=== PATIENT | female | born 1950 | race Caucasian/White ===

== ENCOUNTER 2018-03-12 15:24 | Inpatient (IN) | payer OTHER, MEDICARE ==
[2018-03-12] MEDS ORDERED: NS 500 ML IV ONE (15:51)
--- NOTE | 2018-03-12 15:58 | EDPHY ---
H & P Time Seen by Provider: 03/12/18 15:31 HPI/ROS: HPI Lower extremity weakness. 67-year-old female by ambulance with her . They are both visiting from [facility]. The patient has a history of hypertension as well as myelopathy involving her central spinal cord. She reports that last night she woke with lower extremity weakness and was not able to get out of bed. She describes this as symmetrical involving both lower extremities. She describes having difficulty pushing herself up up to the standing position from sitting and supporting her weight. She had to be helped to the bathroom twice last night secondary to this by her who is with her now. She has had some weakness and pain associated with her lower extremities in the past thought due to peripheral neuropathy but after an extensive evaluation at the [facility] she was diagnosed with a myelopathy. She reports that her weakness today is unlike anything she has experienced in the past. She recently had her blood pressure medication changed to hydrochlorothiazide this last Wednesday. She denies any loss of sensation in her extremities. No focal weakness. No other associated signs or symptoms. No history of [place] or other [place] ROS: Constitutional: No fever, no chills. As above. Eyes: No discharge. No changes in vision. ENT: No sore throat. No nasal congestion or rhinorrhea. Respiratory: No cough. No shortness of breath. Cardiac: No chest pain, no palpitations. Gastrointestinal: No abdominal pain, no vomiting, no diarrhea. Genitourinary: No hematuria. No dysuria or increased frequency with urination. Musculoskeletal: No back pain. No neck pain. No myalgias or arthralgias. Skin: No rashes. Neurological: No headache. No focal weakness or altered sensation. As above. Past medical history: Myelopathy. Hypertension. Primary care is back in [facility]. Social history: Nonsmoker. Drinks alcohol occasionally. Here with her . As above. Physical Exam: General Appearance: Alert, no distress. This patient is responding to questions appropriately and in full sentences. This patient appears well- hydrated and well-nourished. Eyes: Pupils equal and round at 3-2 mm bilaterally, no pallor or injection. No lid edema, erythema or injection. ENT, Mouth: Mucous membranes are moist. The pharyngeal tissues are unremarkable. No edema or swelling. No asymmetry suggestive of abscess. No erythema or exudates. Respiratory: There are no retractions, lungs are clear to auscultation with good air movement bilaterally. Cardiovascular: Regular rate and rhythm. No murmur. Gastrointestinal: Abdomen is soft and nontender, no masses, bowel sounds normal. No focal tenderness at McBurney's point. No Rascon sign. Neurological: Motor sensory function is grossly intact except for 3 to 4/5 motor weakness in the lower extremities only. She has symmetrical intact deep tendon reflexes in the bilateral lower extremities. Cranial nerves are normal. Cerebellar function is intact. Skin: Warm and dry, no rashes. Musculoskeletal: Neck is supple and nontender. Extremities are symmetrical. All joints range without pain or impingement. Psychiatric: No agitation. No depression. Database: EKG: EKG time is 4:06 p.m.; EKG shows a narrow complex normal sinus rhythm with a ventricular rate of 84. Left anterior fascicular block noted. The KS, QRS, QT intervals are within normal limits. There are no ST-T wave changes indicative of ischemic or injury pattern. No evidence of right heart strain. Interpreted by me. Imaging: CT head without contrast: Negative. Results were discussed with staff radiologist Dr. Ike Mckenize. Procedures: Emergency department course: Vital signs reviewed. Differential diagnosis includes Guillain-Kincaid syndrome, hypokalemic periodic paralysis, myelopathy. Initial imaging will include noncontrast CT scan of the brain. IV placed. Patient placed on a monitor. EKG obtained and reviewed by myself. She will be given 500 cc of IV normal saline over about an hour. I discussed lumbar puncture and the reasoning for this with her and her . She declines this test at this time but we will revisit this subject. 5:00 p.m., patient re-evaluated. Resting comfortably at this time. No change in her neurologic exam. Results of her emergency department workup discussed with her and her . The need for admission and further evaluation discussed. They agree. 5:10 p.m., spoke with on-call hospitalist Dr. Schwartz. Case discussed in detail. Dr. Schwartz accepts this patient for admission. He will evaluate the patient in the emergency department and consult with me further regarding the need for immediate lumbar puncture and or MR imaging. 5:30 PM, Dr. Schwartz at the bedside. Will defer lumbar puncture and MR imaging to the hospitalist service. Patient admitted to the hospitalist service under the care of Dr. Schwartz in stable condition. Differential Diagnosis: The differential diagnosis on this patient includes but is not limited to hypokalemic periodic paralysis, Guillain-Kincaid syndrome, myelopathy, hyponatremia with exacerbation of myelopathy. Tick borne illness, [place]'s crisis, CVA, myasthenia gravis unlikely. This represents a partial list of diagnoses considered. These considerations are based on history, physical exam , past history, reassessment and diagnostic testing. Constitutional: Initial Vital Signs Temperature (C) 37.3 C 03/12/18 16:05 Heart Rate 86 03/12/18 16:05 Respiratory Rate 16 03/12/18 16:05 Blood Pressure 131/63 H 03/12/18 16:05 O2 Sat (%) 92 03/12/18 16:05 O2 Delivery Mode Room Air Allergies/Adverse Reactions: No Known Allergies Allergy (Unverified 03/12/18 16:00) Home Medications: Medication Instructions Recorded Aspirin EC [Aspirin EC 81 mg (*)] 81 mg PO Q2D 03/12/18 Carvedilol [Coreg (*)] 25 mg PO BIDMEAL 03/12/18 Gabapentin [Neurontin 300 MG (*)] 600 mg PO BID 03/12/18 Hydrochlorothiazide [HCTZ (*)] 25 mg PO DAILY 03/12/18 Nortriptyline HCl [Pamelor 25 mg 25 mg PO BID 03/12/18 (*)] Potassium Cl [Klor-Con] 10 meq PO DAILY 03/12/18 hydrALAZINE [Apresoline 25 mg (RX)] 25 mg PO TID 03/12/18 Medical Decision Making - Data Points Laboratory Results: Laboratory Results 03/12/18 15:25 03/12/18 15:25 Medications Given: Acetaminophen (Tylenol) 650 mg PO Q4HRS PRN PRN Reason: Pain, Mild/Fever, Can Take PO Stop: 09/08/18 17:48 Last Admin: 03/13/18 06:45 Dose: 650 mg Carvedilol (Coreg) 25 mg PO BIDMEAL [facility] Stop: 09/09/18 07:59 Last Admin: 03/13/18 09:29 Dose: 25 mg Enoxaparin Sodium (Lovenox) 40 mg SC DAILY [facility] Stop: 09/09/18 08:59 Last Admin: 03/13/18 09:30 Dose: 40 mg Gabapentin (Neurontin) 600 mg PO BID JAYNE Stop: 09/08/18 20:59 Last Admin: 03/13/18 09:29 Dose: 600 mg Hydralazine HCl (Apresoline) 25 mg PO TID JAYNE Stop: 09/08/18 21:59 Last Admin: 03/13/18 09:30 Dose: 25 mg Nortriptyline HCl (Pamelor) 25 mg PO BID JAYNE Stop: 09/08/18 20:59 Last Admin: 03/12/18 21:05 Dose: 25 mg Potassium Chloride (Klor-Con) 10 meq PO DAILY JAYNE Stop: 09/09/18 08:59 Last Admin: 03/13/18 09:29 Dose: 10 meq Discontinued Medications Cosyntropin (Cortrosyn Syringe) 0.25 mg IVP DAILY@0600 ONE Stop: 03/13/18 06:01 Last Admin: 03/13/18 06:45 Dose: 0.25 mg Sodium Chloride (Ns) 500 mls @ 0 mls/hr IV ONCE ONE; Wide Open PRN Reason: Protocol Stop: 03/12/18 15:52 Last Admin: 03/12/18 16:15 Dose: 500 mls Departure - Departure Disposition: [facility] Acute Clinical Impression: Lower extremity weakness, Hyponatremia, Hypokalemia
[2018-03-12 16:01] LABS: PLATELET COUNT 246 10^3/uL (150-400)
--- NOTE | 2018-03-12 16:08 | CPEKG ---
Heart Rate: 84 RR Interval: 714 P-R Interval: 156 QRSD Interval: 96 QT Interval: 372 QTC Interval: 440 P Boissevain: 20 QRS Boissevain: -44 T Wave Boissevain: 42 EKG Severity - ABNORMAL ECG - EKG Impression: SINUS RHYTHM EKG Impression: LEFT ANTERIOR FASCICULAR BLOCK EKG Impression: CONSIDER ANTEROSEPTAL INFARCT Electronically Signed By: Janeen Tee 12-Mar-2018 22:12:47
[2018-03-12 16:22] LABS: CREATINE KINASE 42 IU/L (0-156)
[2018-03-12] MEDS ORDERED: ONDANSETRON 4 MG/2 ML VIAL IVP PRN (17:49)
[2018-03-12] MEDS ORDERED: ONDANSETRON DISINTEGRATING 4 MG TAB PO PRN (17:49)
[2018-03-12] MEDS ORDERED: ZOLPIDEM TARTRATE 5 MG TAB PO PRN (17:49)
[2018-03-12] MEDS ORDERED: NS 1,000 ML IV SCH (18:00)
--- NOTE | 2018-03-12 20:26 | PDGENHP ---
History and Physical History and Physical: CC: Acute worsening of chronic bilateral leg weakness, unable stand HISTORY: This patient is here visiting her family from [facility]. She arrived here it sounds like yesterday. She has chronic bilateral leg weakness of neurologic etiology, which is described below. Last night in the middle of night she felt the need to trying get up to urinate. Her usually helps her in that setting because of her leg weakness, but he found that he needed to speak support her quite a bit more than usual and she had urinary incontinence as it was slow to get to the commode. She noticed that she was feeling much weaker in the legs than usual as well. She subsequently got back in bed but then later during the fitter mechanic hours she again had to get up but was unable to stand with his assistance and ended up on the floor and unable to get up. He eventually called for paramedics to help get her up and back into bed. However subsequently she was unable to get up from the bed due to bilateral leg weakness and so is transferred by ambulance here to the ER. Both legs are equally affected acutely and chronically. She has some chronic neuropathic pain but no increase in that pain at this time. Notably the patient, who has chronic hypertension, has had a lot of issues lately with poorly controlled blood pressure, fluctuations in blood pressure, and worsening edema. Four weeks ago her primary care physician gave her chlorthalidone, however this was causing her blood pressures to be too low and she was having some orthostatic symptoms. Therefore 2 weeks ago the chlorthalidone was stopped. In the following week the patient had significant edema accumulate in her ankles, and so her who is a surgeon prescribed hydrochlorothiazide which she has started taking 25 mg daily. This has removed the edema though it is unclear whether there has been much change yet and her blood pressure in the past week. Notably as well, it sounds like she may have taken an extra dose of the hydrochlorothiazide last night, possibly due to misunderstanding of the intended instruction. In the past she has used quite a large number of blood pressure medicines from different classes often with little benefit and the blood pressure control. Her neurologic illness is a noncompressive spinal myelopathy of unknown etiology. Her symptoms started approximately 20 years ago with painful paresthesias and neuropathic pain in her low feet with the symptoms gradually over years advancing more proximally and now they are present from her toes up to the proximal thighs. In addition she has had gradual onset of weakness in her legs without weakness and other body parts. Initially she was diagnosed with peripheral neuropathy, having been evaluated by numerous neurologists in [place]. However as she never had consistent findings or unknown cause, she eventually was assessed by neurologist at [facility] who diagnosed her as having no peripheral neuropathy but as having a myelopathy. Apparently MRI of the spine has shown some central cord disease. Quite extensive testing was done to look for a cause of her myelopathy however apparently no etiologic answer was found. In terms of current symptoms she can walk with assistance or a cane for short distances, has used a cane for 5 years. However for anything more than perhaps half a block she uses a wheelchair due to excessive weakness and fatigue, fall risk. She admits to some urge incontinence if she has trouble getting to a commode in time, however until last night generally speaking does not have any incontinence as long she get to a commode. She has some constipation but no problems with bowel control. She has no neurologic syndrome involving the upper extremities neck head or cranial nerves or mental functioning. There was some testing looking at autonomic dysfunction and apparently there was a suggestion of autonomic dysfunction based on the results , though there was question of whether her blood pressure medicines may have impacted the result. 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, manifest as bilateral leg weakness with neuropathic pain and paresthesias of the legs Chronic hypertension, chronically poorly controlled Fairly recent onset of bilateral leg edema, which is diuretic responsive to both chlorthalidone and hydrochlorothiazide section FAMILY MEDICAL HISTORY: Extensive cardiac and vascular disease history Father had experience a sudden in his 40s SOCIAL HISTORY: and lives with her who is a cardiac surgeon He is at the bedside with her and very supportive There here from [facility] to visit with their son and his family, including 4 grandchildren ages 1-7 MEDICATIONS: Current blood pressure medicines include hydrochlorothiazide started 1 week ago , hydralazine 25 mg three times daily carvedilol 25 mg twice daily. For her nerve pain she is on gabapentin 600 twice daily and nortriptyline 25 twice daily PHYSICAL EXAMINATION: Vital Signs: Mild systolic hypertension, otherwise stable without fever Examination: General: alert, oriented, good mentation, relaxed Skin: Turgor is mildly decreased, otherwise warm, dry, good color, no rash HEENT: normal Neck: no mass or jvd Resps: relaxed Lungs: clear breath sounds Heart: regular, no murmur Abdomen: soft, nondistended, nontender, +BS, no mass Upper Extremities: normal Lower Extremities: no edema, warm No Bleeding or bruising Neurologic: normal speech/language, normal hvac technician, quite weak in both legs and feet symmetrically, able to move her feet but not take either foot up off the bed, but with intact and symmetric reflexes no pathologic reflexes in the lower limbs IV site: looks normal LABORATORY DATA: Sodium is at 120 potassium also bit low at 3.2, with normal renal function A TSH was ordered in the ER and is normal CBC unremarkable RADIOLOGY STUDIES: CT scan of the head noncontrast was done in the ER, I reviewed the images, as well as the radiologist's report: I do not see any particular acute or other abnormalities on the CT study 12 LEAD EKG: Done in the ER, my personal interpretation of the tracing shows a sinus rhythm with left anterior fascicular block, nothing acute appearing ASSESSMENT: # ACUTE WORSENING OF CHRONIC BILATERAL LEG WEAKNESS, UNABLE TO STAND OR WALK * Appears to be caused by fluid shifts and hyponatremia in addition to her chronic myelopathy * Significant fall risk is present, and she is not safe to be in an unsupervised setting # ACUTE HYPONATREMIA IN THE SETTING OF LIKELY MILD HYPOVOLEMIA * Suspect that the hydrochlorothiazide has caused this, other possibilities exist but little evidence for other diagnoses at the moment # ONGOING POORLY CONTROLLED HYPERTENSION * Chlorthalidone recent trial seemed to be very effective but perhaps lower her blood pressure too much to the point of symptomatic orthostasis * Would consider whether Lasix might be useful which would have a milder blood pressure affect and no tendency to hypo natremia # FAIRLY RECENT ONSET OF DIURETIC RESPONSIVE BILATERAL LEG EDEMA * There are no cardiac or pulmonary symptoms at this time nor has she had any in the past, but it would be reasonable to check to be sure cardiac function is as good as it would seem # CHRONIC NONCOMPRESSIVE SPINAL CORD MYELOPATHY WITH CHRONIC BILATERAL LEG WEAKNESS AND NEUROPATHIC PAIN OF THE LEGS * This has been a slowly progressive illness over the past 20 years leading to some disability requiring a cane to walk short distances and a wheelchair for longer distances, but now with acute worsening of symptoms likely metabolic in nature * Because of the underlying spinal disease is unknown despite extensive evaluation PLANS: * Inpatient admission to hospital * Will begin treatment of her hyponatremia with oral fluid restriction and some very gentle saline hydration * Monitoring of sodium every 4 hr for the time being, goal to increase her sodium less than 10 points in 24 hr * Regular diet at this time * Discontinue hydrochlorothiazide and recommended this medicine not be used in the future * For blood pressure control, once her sodium is back in range could consider trial of Lasix but she may need other therapies, apparently has tried a very large number of medicines without consistent success * Physical occupational therapy consult * DVT prophylaxis is ordered * Case management I have reviewed the patient's case in detail with Dr. Janeen Tee I have reviewed the patient's past medical records as part of this assessment, including laboratory data, MRI reports, an autonomic nerve testing provided by her who has all of her past records in his cell phone here
[2018-03-12] MEDS: GABAPENTIN 300 MG CAP PO SCH (21:05)
[2018-03-12] MEDS: NORTRIPTYLINE HCL 25 MG CAP PO SCH (21:05)
[2018-03-12] MEDS: hydrALAZINE 25 MG TAB PO SCH (22:43)
--- NOTE | 2018-03-12 23:07 | PDMN ---
Medical Necessity Medical necessity: C/M review: est. > 2 MN LOS for eval and TX of acute worsening of chronic bilateral bilateral leg weakness, inability to stand or walk- appears to be caused by fluid shifts and hyponatremia in addition to patient's chronic myelopathy, significant fall risk is present, patient not medically safe to be in an unsupervised setting, acute hyponatremia in the setting of likely mile hypovolemia, requiring gentle saline IV fluids, planned Neurology consult, Case Management consult, ongoing oral fluid restriction monitor sodium level Q 4 hrs- goal; to increase sodium less than 10 points in 24 hrs., discontinue hydrochlorthiazide, pulse oximetry, acute inpt PT/OT in SDU , comorbid ongoing poorly controlled hypertension, fairly recent onset of diuretic responsive bilateral leg edema, chronic noncompressive spinal cord myelopathy with chronic bilateral leg weakness and neuropathic pain of the legs - slowly progressive over the past 20 years leading to some disability requiring a cane to walk short distances and a wheelchair for longer distances but now with acute worsening of symptoms likely metabolic in nature, patient visiting family in [place] from [facility] per H/P.
[2018-03-13] MEDS ORDERED: COSYNTROPIN 0.25 MG/2 ML SYRINGE IVP ONE (06:00)
[2018-03-13] MEDS: ACETAMINOPHEN 325 MG TAB PO PRN ×2 (06:45→15:45)
[2018-03-13] MEDS ORDERED: CARVEDILOL 25 MG TAB PO SCH (08:00)
[2018-03-13] MEDS: GABAPENTIN 300 MG CAP PO SCH ×2 (09:29→21:33)
[2018-03-13] MEDS: POTASSIUM CL 10 MEQ TAB PO SCH (09:29)
[2018-03-13] MEDS: ENOXAPARIN 40 MG/0.4 ML SYR SC SCH (09:30)
[2018-03-13] MEDS: hydrALAZINE 25 MG TAB PO SCH (09:30)
[2018-03-13] MEDS: NORTRIPTYLINE HCL 25 MG CAP PO SCH ×2 (11:47→21:33)
--- NOTE | 2018-03-13 12:15 | NEUROPROG ---
Assessment: [id number] - Neurology Consult: - CC: Lower extremity weakness - HPI: Pt visiting from [place] with a history of non-compressive, idiopathic lumbar myelopathy (baseline chronic leg weakness/paresthesias/urge incontinence from this, diagnosed at [facility]) and HTN reported on 03/11/18 she awoke with worsening of her chronic bilateral leg weakness. She also has edema in her legs and has been recently changing her blood pressure medications. On 03/12/18 she presented to the [facility] ER and was admitted. Head CT unremarkable. Labs show low sodium of 120 felt to be secondary to HCTZ use. I initially saw the patient on 03/13/18. Na had improved to 130 with changes to blood pressure medication and fluid restriction. The patient felt her leg weakness had nearly improved to her baseline with the correction to her sodium. She declined lumbar MRI or any additional therapy or diagnostic w/u at this time. - PMHx: lumbar myelopathy since 1997 of unclear cause (diagnosed at [facility]), HTN, B/L leg edema, C.section - Home Meds: HCTZ, hydralazine, coreg, gabapentin, nortriptyline - SHx: no tobacco use FHx: cardiac disease - ROS: Pt denied acute fever, total vision loss, active severe chest pain, respiratory failure, total body severe rash, total bowel/bladder incontinence, psychosis, active seizures, or active bleeding - O: VS reviewed General: Alert Eyes: Fundoscopic exam not able to visualize optic disks CV: Heart RRR, no murmur, no carotid bruit Lungs: Clear to auscultation bilaterally, no rhonchi or rales Neuro: - Mental: . Oriented x person/place/date . concentration appears normal . speech fluency/comprehension normal . memory appears normal . fund of knowledge appear intact - Cranial Nerves: . II: PERRL, VFFTC . III/IV/: EOMI, no nystagmus, normal smooth pursuits, no Ptosis . V: facial sensation intact to LT . VII: face symmetric to eye closure and smile . VIII: hearing intact to conversation . IX/X: uvula raises symmetrically . XI: SCM 5/5 B/L strength . XII: tongue protrudes midline w/nl strength - Motor: . Tone: normal tone in all 4 extremity . Strength: no pronator drift, strength 5/5 throughout in arms, legs are 4+/ 5 and nearly back to her baseline per patient - Reflexes: B/L bic/BR/patella/ach 2/4 - Sensory: all 4 extremity intact to light touch - Coord: [id number] wnl, RASHEED wnl - Gait: deferred - Labs: 03/12/18- CBC Hct 35.7L, UTox negative, Na 120L 03/13/18- Chem Na 130L K 3.1L Cl 92L BUN 5L Cr 0.5L Ca 8.3L, TSH wnl - Rads: 03/12/18- Head CT: normal (I personally visualized the images on 03/13/18) - Assessment: 1. Chronic, idiopathic non-compressive lumbar myelopathy since 1997 causing chronic b/l leg weakness, paresthesias, and urge incontinence: Diagnosed at [facility] and no cause found despite large evaluation. I suspect her chronic myelopathy was worsened by acute hyponatremia from HCTZ use. Agree with plan to address hyponatremia and weakness is improving. - 2. HTN and secondary hyponatremia from HCTZ use: being addressed by hospitalist service - Plan: - Agree with hospitalist plan to address hyponatremia, likely the cause of her acute worsening of chronic leg weakness from myelopathy - Pt declined L-spine MRI or any other additional diagnostic work up at this time - Weakness seems to be nearly resolved with correcting hyponatremia, Neurology will sign off but will be happy to get re-involved if needed Objective: Vital Signs Temp Pulse Resp BP Pulse Ox 37.4 C 77 21 H 104/70 95 03/13/18 00:09 03/13/18 12:10 03/13/18 07:30 03/13/18 12:10 03/13/18 07:30 Laboratory Results 03/13/18 11:30 03/12/18 03/13/18 03/14/18 05:59 05:59 05:59 Intake Total 640 300 Output Total 650 Balance -10 300 Allergies/Adverse Reactions: No Known Allergies Allergy (Unverified 03/12/18 16:00)
--- NOTE | 2018-03-13 13:10 | ASMTCMCOM ---
CM Note CM Note Notes: Patient status reviewed in rounds. She is a 67 year old female here from [place] visiting family. Has a history of noncompressive spinal myelopathy. She is responding to treatment as she was hyponatremic. Therapy evaluations pending. Likely no needs at discharge. Family to return to [place] on Wednesday if patient has been medically cleared. CM to follow. Plan: Home no needs identified but with family support. Date Signed: 03/13/2018 12:37 PM Electronically Signed By:Angela Conde RN
--- NOTE | 2018-03-13 15:14 | HOSPPROG ---
Hospitalist Progress Note Assessment/Plan: 67 yo F visiting from [place] with issues of chronic weakness related to chronic idiopathic non compressive spinal myelopathy admitted with increased weakness and hyponatremia # hyponatremia: suspect this was related to HCTZ use, she was given 500ml NS on arrival and then started on a fluid restriction and has increased appropriately since then--most recently 128 from 120 on arrival. TSH wnl, stimulated appropriately on reggie stim. Will liberalize fluid restriction and monitor overnight checking q4 hour Na. If continues to decrease would give another small saline bolus. # acute on chronic weakness: largely resolved with improvement in Na as above # chronic non compressive spinal myelopathy: followed for this at [facility], appreciate neurology consultation, no further IP w/u planned # hypotension: at baseline with hypertension apparently but patient notes that she has had issues with dizzyness/lightheadedness when taking her morning BP meds which include hctz/hydralazine and carvedilol. Here got hypotensive and symptomatic with SBP in 80s after coreg/hydralazine. Will monitor bp while in house but suspect she is overmedicated and this is contributing to her dizzyness /weakness/lightheadedness # IP status # Patient new to my care. Care plan reviewed with Dr. Lin and multidisciplinary team on rounds. Subjective: no significnat overnight events, feeling better but after bp meds this am became dizzy/lightheaded and bp in the 80s systolic Objective: Vital Signs Temp Pulse Resp BP Pulse Ox 37.4 C 77 21 H 104/70 94 03/13/18 00:09 03/13/18 12:10 03/13/18 07:30 03/13/18 12:10 03/13/18 10:41 Laboratory Results 03/13/18 11:30 03/12/18 03/13/18 03/14/18 05:59 05:59 05:59 Intake Total 640 300 Output Total 650 Balance -10 300 awake alert anicteric op clear rrr no mrg cta b soft nt nd no cce warm dry well perfused oriented appropriate ICD10 Worksheet Patient Problems: Problems Problem Status Onset Lower extremity weakness Acute Hyponatremia Acute Hypokalemia Acute
[2018-03-13] MEDS ORDERED: [UNRECOGNIZED DRUG - OTHER] IV ONE (18:15)
[2018-03-13] MEDS ORDERED: NS IV ONE (18:15)
[2018-03-14] MEDS: ACETAMINOPHEN 325 MG TAB PO PRN (07:01)
[2018-03-14] MEDS: CARVEDILOL 25 MG TAB PO SCH ×2 (08:50→09:07)
[2018-03-14] MEDS: POTASSIUM CL 10 MEQ TAB PO SCH ×2 (08:51→09:28)
[2018-03-14] MEDS: GABAPENTIN 300 MG CAP PO SCH (08:51)
[2018-03-14] MEDS: NORTRIPTYLINE HCL 25 MG CAP PO SCH (08:51)
[2018-03-14] MEDS ORDERED: ASPIRIN EC 81 MG TAB PO SCH (09:00)
[2018-03-14] MEDS: ENOXAPARIN 40 MG/0.4 ML SYR SC SCH (09:09)
--- NOTE | 2018-03-14 09:22 | PDINTPN ---
Computer Networking Instructor Adjunct Progress Note Assessment/Plan: Assessment/plan: 67 F with non-specific myelopathy and chronic, poorly controlled HTN with multiple medication changes in recent months, admitted with weakness and decreased LOC with Na 120. (MD) reports chronic, mild hyponatremia in the low 130's. Recent addition of HCTZ 3-4 days [employer]CH[employer]. Treated with dc HCTZ and fluid restriction with improvement in Na over 48 hours and return to baseline weakness. * Hyponatremia- likely related to HCTZ and improving to near baseline (latest 129) but normal MS and weakness. Recheck this afternoon and consider dc home if stable. * HTN- per patient/family report, she was taking carvedilol and hydralazine so was given those 03/13, but this resulted in SBP 80's. Meds held and improved to 140-150's, which they report as "great for her." I suspect her autoregulatory curve has shifted and needs a higher BP than "textbook," so requested meds be held to day. If her SBP reaches >160, I would start with Carvedilol alone and monitor for changes. * Dispo: no need for frequent Na checks so prob med surg or dc home later today * 03/14/18 09:22 Subjective: feels back to baseline walking and mental status Objective: Vital Signs Temp Pulse Resp BP Pulse Ox 36.4 C 78 20 149/73 H 92 03/14/18 07:38 03/14/18 07:38 03/14/18 07:38 03/14/18 07:38 03/14/18 07:38 Laboratory Results 03/14/18 08:00 03/13/18 03/14/18 03/15/18 05:59 05:59 05:59 Intake Total 640 1250 Output Total 650 Balance -10 1250 Physical Exam - Physical Exam General Appearance: alert, no apparent distress EENT: PERRL/EOMI Neck: supple Respiratory: lungs clear, normal breath sounds, No respiratory distress, No accessory muscle use Cardiac/Chest: regular rate, rhythm, No edema Abdomen: non-tender, soft, No distended Skin: normal color, warm/dry, No cyanosis Lymphatic: no adenopathy Extremities: No pedal edema Neuro/Psych: alert, normal mood/affect, oriented x 3 ICD10 Worksheet Patient Problems: Problems Problem Status Onset Hypokalemia Acute Hyponatremia Acute Lower extremity weakness Acute
[2018-03-14 09:41] VITALS: BP 146/81
[2018-03-14] MEDS ORDERED: NORTRIPTYLINE HCL 25 MG CAP PO ONE (09:45)
--- NOTE | 2018-03-14 12:41 | PDDCSUM ---
Discharge Summary Discharge Summary: Dates of service 03/12-03/14/18 Consultations: pulmonary/critical care, neurology Procedures performed: head CT Hospital course by problem: 67 yo F visiting from [place] with issues of chronic weakness related to chronic idiopathic non compressive spinal myelopathy admitted with increased weakness and hyponatremia # hyponatremia: suspect this was related to HCTZ use, and likely hypovolemic hyponatremia as improved with saline. She remains slightly low at 129 and asymptomatic at this time. Liberalized her fluid intake and continue to hold hctz as below. Recommend f/u labs within the week # acute on chronic weakness: largely resolved with improvement in Na as above # chronic non compressive spinal myelopathy: followed for this at [facility], appreciate neurology consultation, no further IP w/u planned # hypotension: at baseline with hypertension apparently but patient notes that she has had issues with dizzyness/lightheadedness when taking her morning BP meds which include hctz/hydralazine and carvedilol. Here got hypotensive and symptomatic with SBP in 80s after coreg/hydralazine. Off of all meds BP only up to systolics 140 so will have her continue to hold her bp meds, recommend that they check her BP regularly and on f/u with PCP determine whether to resume bp meds at that time. > 35 min spent in dc of patient more than half in coordination of care Items for follow up: --monitoring of BP --repeat Na check
[2018-03-14] MEDS ORDERED: NORTRIPTYLINE HCL 25 MG CAP PO SCH (21:00)
== END 2018-03-14 13:35 | disposition home or self-care (01) | DRG 641 ==
LOC: F3E 18:10 → F2N 22:03
PROVIDERS: ADMIT Internal Medicine; ATTEND Internal Medicine
DX: E87.1 Hypo-osmolality and hyponatremia (principal); T50.2X5A Adverse effect of carbonic-anhydrase inhibitors, benzothiadiazides and other diuretics, initial encounter; E87.6 Hypokalemia; I95.89 Other hypotension; I10 Essential (primary) hypertension; G95.9 Disease of spinal cord, unspecified
CPT/HCPCS: 80305; 97161-GP; 97166-GO; 97535-GO; G0480; G8978-GP-CJ; G8979-GP-CI; G8987-GO-CL; G8988-GO-CJ; J0834; J1650